=== PATIENT | female | born 2000 | race African-American/Black ===

== ENCOUNTER 2022-05-16 17:50 | Emergency (ER) | payer BC, SELFPAY ==
[2022-05-16 18:03] VITALS: BP 121/63; BP 142/90; PULSE 60; PULSE 95; RESP 16; TEMP 37.3; O2SAT 100; O2SAT 99; BMI 17.4
--- NOTE | 2022-05-16 18:14 | ED.PSYCH ---
HPI - Psych General Chief Complaint: Psychiatric Symptoms Stated Complaint: secction 12 Time Seen by Provider: 05/16/22 17:52 Source: patient and EMS Mode of arrival: EMS Limitations: no limitations History of Present Illness HPI Narrative: 21 year old female presents to the ED with vague SI X1 day. Patient reports she received a poor grade on an exam, told her mother and got into a fight with her. Patient reports her twin sister 3 years ago, and occasionally her mother will tell her she wishes she instead of her. She reports her mother said this to her, and because of this she had thoughts of jumping off a building. Patient reports she got afraid, ran back to her room and called [facility] to seek therapy. Patient reports she felt this way a few years ago when her sister . Denies visual, auditory and tactile hallucinations. Denies drugs, alcohol and tobacco. Patient denies HI, nausea, diarrhea, headaches, fevers, chills,. Patient reports she does not feel supported by mother. Related Data Allergies Allergy/AdvReac Type Severity Reaction Status Date / Time Unable to Assess Allergy Unverified 05/16/22 17:54 Review of Systems Review of Systems: Constitutional : No Fever, No Chills ENT/Mouth : No Ear Pain, No Nasal Congestion, No sore throat Eyes: No Eye Pain, No Swelling, No Redness Cardiovascular : No Chest Pain, No SOB Respiratory : No Cough, No Sputum, No Dyspnea Gastrointestinal : No Nausea, No Vomiting, No Diarrhea, No Hematochezia, No Melena Genitourinary : No Dysuria, No Urinary Frequency, No Hematuria Musculoskeletal : No Myalgias Skin : No Skin Lesions, No rash Neuro : No Weakness, No Numbness, No Paresthesias, No Dizziness, No Headache Psych : positive Anxiety, positive Depression, positive SI, No HI All other systems reviewed and are negative Yes all other systems are reviewed and are negative FORMERLY [facility], [facility]–1983 Past Medical History Attestation statement: The following information was validated with the patient. Source: old records reviewed and nursing notes reviewed Physical Exam Vital Signs: Vital Signs: Last Vital Signs Temp 99.1 F 05/16/22 18:03 Pulse 95 05/16/22 18:03 Resp 16 05/16/22 18:03 BP 121/63 05/16/22 18:03 Pulse Ox 99 05/16/22 18:03 O2 Del Method 10/13/22 18:03 BMI result Body Mass Index 17.4 vss Appearance: Alert.? Oriented X3.? No acute distress.? Head: Normocephalic, atraumatic, no step-offs or deformities Eyes: Pupils equal, round and reactive to light.? ENT: Pharynx normal. Neck: Normal inspection.? Neck supple.? CVS: Normal heart rate and rhythm.? Pulses normal.? Respiratory: No respiratory distress.? Breath sounds normal.? Abdomen: Soft and nontender.? Skin: Skin warm and dry.? Normal skin color.? Normal skin turgor.? Extremities: No lower extremity edema.? No calf ttp. 5/5 strength to bilateral upper and lower extremities Neuro: Oriented X 3.? No motor deficit.? No sensory deficit. CN 2-12 intact Course Reevaluation(s) Reevaluation #1: CBC appears to be grossly normal. Chemistry with no acute electrolyte abnormalities requiring intervention. UA infection. Toxicology negative. Ethanol negative. COVID negative. At this time patient will be placed in physician observation to allow more time to be evaluated by the behavioral health team. At time observation was started patient common cooperative no acute distress will continue to monitor Time: 20:05 MDM - Psych MDM Narrative Medical decision making narrative: 1813 21 year old female presents w/ anxiety, depression and vague si w/o plan. Coming from [facility] [place] benign Plan- medical clearance eval by behavioral health team. Medical Records Attestation: I reviewed the patient's medical records. Lab Data Attestation: I reviewed the patient's lab results. Result diagrams: 05/16/22 18:49 05/16/22 18:49 Labs: Lab Results 05/16/22 05/16/22 05/16/22 Range/Units 18:25 18:26 18:26 WBC (4.8-10.8) X10*3/uL RBC (4.20-5.50) X10*6/uL Hgb (12.0-16.0) g/dl Hct (37.0-47.0) % MCV (80.0-98.0) fL MCH (27.0-33.0) pg MCHC (31.0-35.0) g/dl RDW (11.0-16.0) % Plt Count (160-400) X10*3/uL MPV (9.4-12.3) fL Immature Gran % (Auto) (0.0-0.4) % Neut % (Auto) (45-73) % Lymph % (Auto) (20-40) % Andrews % (Auto) (2-11) % Eos % (Auto) (0-4) % Baso % (Auto) (0-2) % Lymph # (Auto) (1.2-4.9) X10*3/uL Andrews # (Auto) (0.1-1.2) X10*3/uL Eos # (Auto) (0.0-0.4) X10*3/uL Baso # (Auto) (0.0-0.2) X10*3/uL Abs Immat Gran (auto) (0.00-0.03) X10*3/uL Absolute Neuts (auto) (2.0-8.3) x10*3/uL Absolute Nucleated RBC (0.0-0.012) X10*3/uL Nucleated RBC % (auto) (0.0-0.2) /100WBC Sodium (135-145) mmol/L Potassium (3.3-5.1) mmol/L Chloride (96-108) mmol/L Carbon Dioxide (22-29) mmol/L Anion Gap (12-20) BUN (9-16) mg/dL Creatinine (0.5-1.4) mg/dL Estim Creat Clear Calc Estimated GFR Random Glucose (60-115) mg/dL Calcium (8.4-10.2) mg/dL Magnesium (1.6-2.6) mg/dL Total Bilirubin (0.0-1.0) mg/dL AST (5-31) U/L ALT (0-31) U/L Alkaline Phosphatase (39-117) U/L Total Protein (6.5-8.0) g/dL Albumin (3.5-5.0) g/dL Urine Color Dark Yellow Urine Appearance Clear Urine pH 5.0 (5.0-9.0) Ur Specific [place] 1.025 (1.005-1.025) Urine Protein 30 (1+) H (Neg-Trace) mg/dL Urine Glucose (UA) Negative (Negative) mg/dL Urine Ketones Trace (Negative) mg/dL Urine Blood Large (3+) H (Negative) Urine Nitrite Negative (Negative) Ur Leukocyte Esterase Trace H (Negative) Urine RBC >20 H (0-2) /HPF Urine WBC 0-5 (0-5) /HPF Ur Squamous Epith Cells 3-5 (0-2) /HPF Urine Bacteria None Seen (None Seen) Hyaline Casts 0-2 (0-2) /LPF Urine Test NEGATIVE (NEGATIVE) Urine Opiates Screen (Not Detect) Urine Fentanyl Screen (Not Detect) Ur Barbiturates Screen (Not Detect) Ur Phencyclidine Scrn (Not Detect) Ur Amphetamines Screen (Not Detect) U Benzodiazepines Scrn (Not Detect) Urine Cocaine Screen (Not Detect) U Marijuana (THC) Screen (Not Detect) Ethyl Alcohol mg/dL COVID-19 (NATASHA) Negative (Negative) COVID-19 Clin Com See Note 05/16/22 05/16/22 05/16/22 Range/Units 18:26 18:49 18:49 WBC 5.9 (4.8-10.8) X10*3/uL RBC 4.32 (4.20-5.50) X10*6/uL Hgb 11.9 L (12.0-16.0) g/dl Hct 34.9 L (37.0-47.0) % MCV 80.8 (80.0-98.0) fL MCH 27.5 (27.0-33.0) pg MCHC 34.1 (31.0-35.0) g/dl RDW 13.0 (11.0-16.0) % Plt Count 267 (160-400) X10*3/uL MPV 11.3 (9.4-12.3) fL Immature Gran % (Auto) 0.2 (0.0-0.4) % Neut % (Auto) 62.8 (45-73) % Lymph % (Auto) 29.5 (20-40) % Andrews % (Auto) 6.4 (2-11) % Eos % (Auto) 0.8 (0-4) % Baso % (Auto) 0.3 (0-2) % Lymph # (Auto) 1.8 (1.2-4.9) X10*3/uL Andrews # (Auto) 0.4 (0.1-1.2) X10*3/uL Eos # (Auto) 0.1 (0.0-0.4) X10*3/uL Baso # (Auto) 0.0 (0.0-0.2) X10*3/uL Abs Immat Gran (auto) 0.01 (0.00-0.03) X10*3/uL Absolute Neuts (auto) 3.7 (2.0-8.3) x10*3/uL Absolute Nucleated RBC 0.000 (0.0-0.012) X10*3/uL Nucleated RBC % (auto) 0.0 (0.0-0.2) /100WBC Sodium 140 (135-145) mmol/L Potassium 3.8 (3.3-5.1) mmol/L Chloride 107 (96-108) mmol/L Carbon Dioxide 23 (22-29) mmol/L Anion Gap 14 (12-20) BUN 9 (9-16) mg/dL Creatinine 0.70 (0.5-1.4) mg/dL Estim Creat Clear Calc 97.2 Estimated GFR > 60 Random Glucose 98 (60-115) mg/dL Calcium 9.5 (8.4-10.2) mg/dL Magnesium 2.0 (1.6-2.6) mg/dL Total Bilirubin 0.4 (0.0-1.0) mg/dL AST 14 (5-31) U/L ALT 7 (0-31) U/L Alkaline Phosphatase 40 (39-117) U/L Total Protein 7.5 (6.5-8.0) g/dL Albumin 4.4 (3.5-5.0) g/dL Urine Color Urine Appearance Urine pH (5.0-9.0) Ur Specific [place] (1.005-1.025) Urine Protein (Neg-Trace) mg/dL Urine Glucose (UA) (Negative) mg/dL Urine Ketones (Negative) mg/dL Urine Blood (Negative) Urine Nitrite (Negative) Ur Leukocyte Esterase (Negative) Urine RBC (0-2) /HPF Urine WBC (0-5) /HPF Ur Squamous Epith Cells (0-2) /HPF Urine Bacteria (None Seen) Hyaline Casts (0-2) /LPF Urine Test (NEGATIVE) Urine Opiates Screen Not Detected (Not Detect) Urine Fentanyl Screen Not Detected (Not Detect) Ur Barbiturates Screen Not Detected (Not Detect) Ur Phencyclidine Scrn Not Detected (Not Detect) Ur Amphetamines Screen Not Detected (Not Detect) U Benzodiazepines Scrn Not Detected (Not Detect) Urine Cocaine Screen Not Detected (Not Detect) U Marijuana (THC) Screen Not Detected (Not Detect) Ethyl Alcohol < 10 mg/dL COVID-19 (NATASHA) (Negative) COVID-19 Clin Com Critical Care Time Critical Care Time Critical Care Time: No Discharge Plan Discharge Clinical Impression: Depression, Acute anxiety, Suicidal ideation Patient Disposition: Still a Patient
[2022-05-16 18:36] LABS: Appearance Urine Clear; Color Urine Dark Yellow; Glucose Urine UA Negative (Negative); Leukocyte Esterase Urine Trace (Negative); Nitrite Urine Negative (Negative); Specific Gravity - Urine 1.025 (1.005-1.025); UMIC TRIGGER UACC YES; Urine Blood Large (3+) (Negative); Urine Ketones Trace mg/dL (Negative); Urine Protein 30 (1+) mg/dL (Neg-Trace)
[2022-05-16 18:37] LABS: UPreg QC Valid YES; Urine Pregnancy NEGATIVE (NEGATIVE)
[2022-05-16 18:41] LABS: Bacteria Urine None Seen (None Seen); Hyaline Casts Urine 0-2 /LPF (0-2); RBC Urine >20 /HPF (0-2); WBC Urine 0-5 /HPF (0-5)
[2022-05-16 18:50] LABS: Amphetamine Screen Urine Not Detected (Not Detect); Barbiturates, Urine Not Detected (Not Detect); Benzodiazepines Screen Urine Not Detected (Not Detect); Cannabinoid Screen Urine Not Detected (Not Detect); Cocaine Screen Urine Not Detected (Not Detect); Fentanyl, urine Not Detected (Not Detect); Opiate Screen Urine Not Detected (Not Detect); Phencyclidine Screen Urine Not Detected (Not Detect)
[2022-05-16 18:53] LABS: COVID-19 Test Negative (Negative)
[2022-05-16 18:56] LABS: MANUAL DIFF FLAG NO
[2022-05-16 18:58] LABS: Basophils Percent Auto 0.3 % (0-2); Eosinophils Absolute Auto 0.1 X10*3/uL (0.0-0.4); Eosinophils Percent Auto 0.8 % (0-4); Hematocrit 34.9 % (37.0-47.0); Hemoglobin 11.9 g/dl (12.0-16.0); Imm Gran Abs Auto 0.01 X10*3/uL (0.00-0.03); Imm Gran Pct Auto 0.2 % (0.0-0.4); Lymphocytes Absolute Auto 1.8 X10*3/uL (1.2-4.9); Lymphocytes Percent Auto 29.5 % (20-40); Mean Corpuscular HGB Conc 34.1 g/dl (31.0-35.0); Mean Corpuscular Hemoglobin 27.5 pg (27.0-33.0); Mean Corpuscular Volume 80.8 fL (80.0-98.0); Mean Platelet Volume 11.3 fL (9.4-12.3); Monocytes Absolute Auto 0.4 X10*3/uL (0.1-1.2); Monocytes Percent Auto 6.4 % (2-11); Neutrophils Absolute Auto 3.7 x10*3/uL (2.0-8.3); Neutrophils Percent Auto 62.8 % (45-73); Platelet Count 267 X10*3/uL (160-400); Red Blood Count 4.32 X10*6/uL (4.20-5.50); White Blood Count 5.9 X10*3/uL (4.8-10.8)
[2022-05-16 19:16] LABS: Alanine Aminotransferase 7 U/L (0-31); Albumin Level 4.4 g/dL (3.5-5.0); Alkaline Phosphatase 40 U/L (39-117); Anion Gap 14 (12-20); Aspartate Amino Transferase 14 U/L (5-31); Bilirubin Total 0.4 mg/dL (0.0-1.0); Blood Urea Nitrogen 9 mg/dL (9-16); Calcium 9.5 mg/dL (8.4-10.2); Carbon Dioxide 23 mmol/L (22-29); Chloride 107 mmol/L (96-108); Creatinine Clr Calc Pharmacy 97.2; Estimated Glomerular Filt Rate > 60; Ethanol < 10 mg/dL; Glucose Random 98 mg/dL (60-115); Potassium 3.8 mmol/L (3.3-5.1); Sodium 140 mmol/L (135-145); Total Protein 7.5 g/dL (6.5-8.0)
[2022-05-17 01:12] VITALS: BP 97/49; PULSE 75; RESP 15; TEMP 37.1; O2SAT 99
--- NOTE | 2022-05-17 05:57 | PC.NURSE ---
Patient slept intermittently, no distress observed/reported, behavior non concerning, medication rec completed/patient is not on any medication at this time, patient is waiting to be seen by care team in the morning, VSS, will continue to monitor.
--- NOTE | 2022-05-17 08:33 | PC.NURSE ---
CARE TEAM AT BEDSIDE, PT AWARE OF PLAN OF CARE.
--- NOTE | 2022-05-17 09:32 | PC.NURSE ---
PT IS A/O X 4 NO SOB/JACKIE NOTED SKIN PINK WARM DRY SPEAKS IN FULL SENTENCES. PT STATES THAT SHE IS HAVING HER MENSES AND IS C/O ABD DISC. PT SEEN BY CARE TEAM AND IS AWARE OF PLAN OF CARE.
--- NOTE | 2022-05-17 09:41 | PC.NURSE ---
PT DENIES ANY SI/HI.
[2022-05-17 11:12] VITALS: BP 103/53; PULSE 84; RESP 17; TEMP 36.8; O2SAT 99
--- NOTE | 2022-05-17 12:49 | MHC.CARE ---
Talya will utilize the following crisis hotlines for crisis support:? [facility] Crisis Services: [phone], this crisis team serves all of [facility]. You can call or? you can go to their office, [address], [place].?? [facility] : 24/02 Care and Support Line at [phone]? The National Suicide Prevention Lifeline 988 Talya appears future and goal oriented and has plans to attend her school event on Friday and a date with her partner on Friday. Recommendations:? -Talya will continue to utilize supports and has an appointment on 05/20 at 10:00am to meet with Radha from the counseling center. -Talya will continue to utilize campus support for her mental health and attend regular therapy sessions on campus. -If Talya feels that she is not improving? or if symptoms worsen, she will report to the [facility] counseling center or return to [facility] -CARE Team will complete two check in calls on Friday & Friday to provide weekend support.
--- NOTE | 2022-05-17 13:10 | PM.PSYCN ---
History of Present Illness Date of Service: 05/17/2022 Chief Complaint: secction 12 Discussed with referring provider: Yes Sources of Information: patient interviewed, chart reviewed and crisis/core team assessment reviewed HPI Narrative: Ms. Reed is a 21 year-old woman self presented to [facility] after met with counselor at [facility] and had reported suicidal thoughts initially thought with plan to jump off roof. In the ED, utox is neg. Pt presents as cooperative and calm. Pt reports she has had a tumultous relationship with her mother who at times is not supportive. Pt reports in past days she received a poor grade in one of her classes. She reports she was upset about the grade but not to the point of being suicidal. It was only after she spoke with her mother and she shared with mom the news of her grade and apparently mother got very upset and at some point, made comment to pt about how she should have been the one who should have and not her twin sister (pt has twin sister who of suicide a few years ago). This comment along with already tumultuous relationship with mother, according to pt, prompted thoughts of feeling worthless and wondering if her mother was right and she should be instead. Pt reports she quickly realized that she was not in a good mental space and called her school counseling for support. She denies plan or intent. She states when she called she was in upper level of building but that she never reported that she plan to jump off building. She states she was asking for support and someone to talk with. She reports she has talked with her older sister and father who are supportive. She reports she has been seeing therapist at campus which has been very helpful. She plans to resume that. She denies hx of suicide attempts. No hx of VH/AH. No s/s of hypomania or luda. Diagnostics Vital Signs (24Hr): Vital Signs - 24 hr 05/16/22 18:03 05/17/22 01:12 05/17/22 11:12 Temperature 99.1 F 98.8 F 98.3 F Pulse Rate 95 75 84 Respiratory Rate 16 15 17 Blood Pressure 121/63 97/49 L 103/53 L Pulse Oximetry 99 99 99 Oxygen Delivery Method Room Air Room Air Room Air BMI result Body Mass Index 17.4 Labs Results: 05/16/22 18:49 05/16/22 18:49 Labs: Laboratory Results - last 48 hr 05/16/22 05/16/22 05/16/22 18:25 18:26 18:26 WBC RBC Hgb Hct MCV MCH MCHC RDW Plt Count MPV Immature Gran % (Auto) Neut % (Auto) Lymph % (Auto) [place] % (Auto) Eos % (Auto) Baso % (Auto) Lymph # (Auto) [place] # (Auto) Eos # (Auto) Baso # (Auto) Abs Immat Gran (auto) Absolute Neuts (auto) Absolute Nucleated RBC Nucleated RBC % (auto) Sodium Potassium Chloride Carbon Dioxide Anion Gap BUN Creatinine Estim Creat Clear Calc Estimated GFR Random Glucose Calcium Magnesium Total Bilirubin AST ALT Alkaline Phosphatase Total Protein Albumin Urine Color Dark Yellow Urine Appearance Clear Urine pH 5.0 Ur Specific Vivian 1.025 Urine Protein 30 (1+) H Urine Glucose (UA) Negative Urine Ketones Trace Urine Blood Large (3+) H Urine Nitrite Negative Ur Leukocyte Esterase Trace H Urine RBC >20 H Urine WBC 0-5 Ur Squamous Epith Cells 3-5 Urine Bacteria None Seen Hyaline Casts 0-2 Urine Test NEGATIVE Urine Opiates Screen Urine Fentanyl Screen Ur Barbiturates Screen Ur Phencyclidine Scrn Ur Amphetamines Screen U Benzodiazepines Scrn Urine Cocaine Screen U Marijuana (THC) Screen Ethyl Alcohol COVID-19 (NATASHA) Negative COVID-19 Clin Com See Note 05/16/22 05/16/22 05/16/22 18:26 18:49 18:49 WBC 5.9 RBC 4.32 Hgb 11.9 L Hct 34.9 L MCV 80.8 MCH 27.5 MCHC 34.1 RDW 13.0 Plt Count 267 MPV 11.3 Immature Gran % (Auto) 0.2 Neut % (Auto) 62.8 Lymph % (Auto) 29.5 [place] % (Auto) 6.4 Eos % (Auto) 0.8 Baso % (Auto) 0.3 Lymph # (Auto) 1.8 [place] # (Auto) 0.4 Eos # (Auto) 0.1 Baso # (Auto) 0.0 Abs Immat Gran (auto) 0.01 Absolute Neuts (auto) 3.7 Absolute Nucleated RBC 0.000 Nucleated RBC % (auto) 0.0 Sodium 140 Potassium 3.8 Chloride 107 Carbon Dioxide 23 Anion Gap 14 BUN 9 Creatinine 0.70 Estim Creat Clear Calc 97.2 Estimated GFR > 60 Random Glucose 98 Calcium 9.5 Magnesium 2.0 Total Bilirubin 0.4 AST 14 ALT 7 Alkaline Phosphatase 40 Total Protein 7.5 Albumin 4.4 Urine Color Urine Appearance Urine pH Ur Specific Vivian Urine Protein Urine Glucose (UA) Urine Ketones Urine Blood Urine Nitrite Ur Leukocyte Esterase Urine RBC Urine WBC Ur Squamous Epith Cells Urine Bacteria Hyaline Casts Urine Test Urine Opiates Screen Not Detected Urine Fentanyl Screen Not Detected Ur Barbiturates Screen Not Detected Ur Phencyclidine Scrn Not Detected Ur Amphetamines Screen Not Detected U Benzodiazepines Scrn Not Detected Urine Cocaine Screen Not Detected U Marijuana (THC) Screen Not Detected Ethyl Alcohol < 10 COVID-19 (NATASHA) COVID-19 Clin Com Mental Status Exam Mental Status Exam Narrative: Appearance: casually groomed, fair hygiene in NAD Behavior:cooperative psychomotor: no agitation or retardation noted Speech:clear, normal rate/rhythm/volume, spontaneous Thought process: tangential Thought content:no signs of psychosis, future oriented Mood: better Affect: congruent SI:none HI:none VH/AH:none Delusions:none Insight/judgment:good x 2. Memory/cog: alert, oriented x 3. Medications Allergies Allergies Allergy/AdvReac Type Severity Reaction Status Date / Time Unable to Assess Allergy Unverified 05/16/22 17:54 Assessment & Plan Assessment & Plan (1) Adjustment disorder with anxiety: Status: Acute Code(s): F43.22 - Adjustment disorder with anxiety Plan Ms. Reed is a 21 year-old woman, currently a student at [employer], who self presented to [facility] ED at recommendation of her school's counselor after she reported having suicidal ideation in context of argument with mother with whom pt reports already has had tumultuous relationship. Pt adamantly denies any plan or intent to harm herself or others. She has worked in therapy different ways of dealing with mother and its effects on her mental health. She reports she reached out to older sister who is very supportive. Pt denies hx of suicide attempts, although her twin of suicide few months ago. She denies VH/AH. No s/s of hypomania or luda. PLAN 1. No imminent safety risks due to suicidal or homicidal ideation. Pt can return to school, continue OP counseling through school. I spent minutes with the patient and/or on the patient floor today, greater than?50% of which was spent counseling/coordinating care.
--- NOTE | 2022-05-17 13:22 | MHC.CARE ---
CARE Team reviewed safety plan with Pt and emailed copy to Radha at [facility]
--- NOTE | 2022-05-18 18:02 | MHC.CARE ---
Care Team attempted to contact pt, however, number on file is not in services at the moment.
--- NOTE | 2022-05-19 11:05 | MHC.CARE ---
Attempted to reach out to pt, phone is currently not in service
== END 2022-05-17 15:30 | disposition home or self-care (01) ==
PROVIDERS: Physician Assistant; Emergency Provider Emergency Medicine
DX: F43.22 Adjustment disorder with anxiety (principal); R45.851 Suicidal ideations; Z72.89 Other problems related to lifestyle; Z63.4 Disappearance and death of family member; Z20.822 Contact with and (suspected) exposure to COVID-19
CPT/HCPCS: 80053; 80307; 81001; 81025; 82077; 83735; 85025; 87635; 99284